=== PATIENT | male | born 1955 | race Caucasian/White ===

== ENCOUNTER → 2017-06-22 | Day surgery (SDC) | payer OTHER ==
--- NOTE | 2017-06-22 17:57 | GPN ---
[f rep st] PROCEDURE NOTE DATE OF PROCEDURE: 06/22/2017 PREOPERATIVE DIAGNOSIS: Elevated prostate-specific antigen. POSTOPERATIVE DIAGNOSIS: Elevated prostate-specific antigen. PROCEDURE PERFORMED: Transrectal ultrasound-guided biopsy of the prostate. ANESTHESIA: 1% local lidocaine. SPECIMENS: 12 prostate core biopsies. COMPLICATIONS: None. The patient tolerated the procedure well. FINDINGS: A digital rectal exam revealed no abnormalities. The prostate volume was 45.9 g with a wi dth of 4.52 cm, a height of 3.79, and a length of 5.13 cm. INDICATION: Patient has been followed for an elevated PSA, and he came to my office with significant lower urinary tract symptoms, and he had not had a recent PSA. His PSA ended up trending up to 5. In January of 2017 it was 4.2. So we felt that biopsy of prostate was recommended, and he agreed. I did thoroughly discuss preoperatively on initial visit as well as today the rationale, risks and benefit s for this prostate biopsy. The risks include bleeding; infection; pain; blood in the urine, ejacula te, and stool; urinary tract infection; as well as a postbiopsy sepsis. He did receive 120 mg of gen tamicin in my office 15 minutes before the biopsy IM as well as he will get a 1-time dose of Levaquin after the biopsy. These antibiotics will help prevent any postoperative infection. He understood a ll these risks and continued to agree to proceed. DESCRIPTION OF PROCEDURE: He was seen in our clinic for his gentamicin injection, and then brought d own to the [facility] Department at [facility]. A time-out was p erformed, and consent was received. He was placed in the left lateral decubitus position on a gurney . Digital rectal exam was performed, and the prostate appeared to be 30-40 g. There were no specifi c abnormalities. The prostate probe was then gently inserted transrectally, the prostate was measure d, and the measurements were as above. Then I used 1% local lidocaine to numb up the neurovascular b undles on the right and the left of the prostate. Then started on the left lobe of the prostate at t he base and took 2 biopsies at the peripheral aspect of the base, then 2 at the mid, and then 2 at th e apex. I did the same on the right side, again taking biopsies on the most peripheral aspects of th e apex mid and base. All of the specimens were of a good quality and length, and they were examined for this. The patient tolerated the procedure very well. The probe was removed, and then at the end I did do another rectal exam to check for any bleeding, and there was a very minimal amount of bleed ing, and I did let him know that he should anticipate some blood per rectum with this, but it did paula ear that he was hemostatic. He then sat up, felt well, and was instructed to void prior to leaving [facility]. Dr. Chen was present for the entire procedure. /[id number]/MODL
== END | disposition home or self-care (01) ==
LOC: BMCIMAGING 07:28
PROVIDERS: ATTEND Urology
PROC: 0VB07ZX Excision of Prostate, Via Natural or Artificial Opening, Diagnostic (ICD-10-PCS; principal; 2017-06-22)
PROC: BV49ZZZ Ultrasonography of Prostate and Seminal Vesicles (ICD-10-PCS; 2017-06-22)
DX: R97.20 Elevated prostate specific antigen [PSA] (principal)

== ENCOUNTER → 2017-10-10 | Outpatient (CLI) | payer OTHER | LOC: BMCIMAGING 07:44 → EEVIPCON 08:00 | PROVIDERS: ATTEND Urology | PROC: 0VB03ZX Excision of Prostate, Percutaneous Approach, Diagnostic (ICD-10-PCS; principal; 2017-10-10) | DX: Z12.5 Encounter for screening for malignant neoplasm of prostate (principal) ==